=== PATIENT | male | born 1985 | race Asian ===

== ENCOUNTER 2016-12-06 10:45 | Emergency (ER) | payer OTHER ==
[~2016-12-06] VITALS: Ht 152.4 cm; Wt 45.4 kg
--- NOTE | 2016-12-06 11:14 | PHYS DOC ---
Adult General Chief Complaint Chief Complaint: FEVER HPI HPI Patient is a 31 year old male presents to the ED complaining of dysuria x 3 days. Describes the pain as burning. Rates the pain as 7/10. Associated symptoms include subjective fever and body aches. States similar symptoms in the past. Denies headache, penile discharge, hematuria, n/v, dizziness, weakness , abdominal pain, chest pain, shortness of breath or testicular swelling. Review of Systems Review of Systems Constitutional: Denies fever or chills [] Eyes: Denies change in visual acuity, redness, or eye pain [] HENT: Denies nasal congestion or sore throat [] Respiratory: Denies cough or shortness of breath [] Cardiovascular: No additional information not addressed in HPI [] GI: Denies abdominal pain, nausea, vomiting, bloody stools or diarrhea [] : Complains of dysuria. Denies hematuria. [] Musculoskeletal: Denies back pain or joint pain [] Integument: Denies rash or skin lesions [] Neurologic: Denies headache, focal weakness or sensory changes [] Endocrine: Denies polyuria or polydipsia [] Current Medications Current Medications Current Medications Medications (Trade) Dose Ordered Sig/Coral Start Time Stop Time Status Last Admin Dose Admin Acetaminophen (Tylenol) 650 mg 1X ONCE 12/06/16 13:45 12/06/16 13:46 DC 12/06/16 13:28 650 MG Azithromycin (Zithromax) 250 mg STK-MED ONCE 12/06/16 12:42 12/06/16 12:43 DC Ceftriaxone Sodium (Rocephin Im) 250 mg STK-MED ONCE 12/06/16 12:42 12/06/16 12:43 DC Ibuprofen (Motrin) 800 mg 1X ONCE 12/06/16 14:00 12/06/16 14:01 DC 12/06/16 14:11 800 MG Metronidazole (Flagyl) 2,000 mg 1X ONCE 12/06/16 12:45 12/06/16 12:46 DC 12/06/16 12:45 2,000 MG Sodium Chloride 1,000 ml @ 1,000 mls/hr 1X ONCE 12/06/16 13:30 12/06/16 14:29 DC 12/06/16 13:27 1,000 MLS/HR Allergies Allergies Allergies Coded Allergies Type Severity Reaction Last Updated Verified No Known Drug Allergies 12/06/16 No Physical Exam Physical Exam Constitutional: Well developed, well nourished, no acute distress, non-toxic appearance. [] HENT: Normocephalic, atraumatic, bilateral external ears normal, oropharynx moist, no oral exudates, nose normal. [] Eyes: PERRLA, EOMI, conjunctiva normal, no discharge. [] Neck: Normal range of motion, no tenderness, supple, no stridor. [] Cardiovascular:Heart rate regular rhythm, no murmur [] Lungs & Thorax: Bilateral breath sounds clear to auscultation [] Abdomen: Bowel sounds normal, soft, no tenderness, no masses, no pulsatile masses. [] REFUSED EXAM. Skin: Warm, dry, no erythema, no rash. [] Back: No tenderness, no CVA tenderness. [] Extremities: No tenderness, no cyanosis, no clubbing, ROM intact, no edema. [] Neurologic: Alert and oriented X 3, normal motor function, normal sensory function, no focal deficits noted. [] Psychologic: Affect normal, judgement normal, mood normal. [] Current Patient Data Vital Signs Vital Signs Date Time Temp Pulse Resp B/P (MAP) Pulse Ox O2 Delivery O2 Flow Rate FiO2 12/06/16 15:08 109 18 96/50 (65) 100 Room Air 12/06/16 13:10 101.0 101.0 Lab Values Laboratory Tests Test 12/06/16 11:13 12/06/16 13:15 12/06/16 13:18 Urine Collection Type Unknown Urine Color Joana Urine Clarity Clear Urine pH 6.0 Urine Specific Leslie 1.020 Urine Protein 30 mg/dL (NEG-TRACE) Urine Glucose (UA) Negative mg/dL (NEG) Urine Ketones (Stick) Negative mg/dL (NEG) Urine Blood Negative (NEG) Urine Nitrite Negative (NEG) Urine Bilirubin Negative (NEG) Urine Urobilinogen Dipstick 2.0 mg/dL (0.2 mg/dL) Urine Leukocyte Esterase Negative (NEG) Urine RBC 0 /HPF (0-2) Urine WBC 1-4 /HPF (0-4) Urine Transitional Epithelial Cells Mod /LPF Urine Bacteria 0 /HPF (0-FEW) Urine Mucus Marked /LPF Urine Chlamydia DNA (PCR) Negative (Negative) Neisseria gonorrhoeae DNA (PCR) Negative (Negative) White Blood Count 12.1 x10^3/uL (4.0-11.0) H Red Blood Count 5.52 x10^6/uL (4.30-5.70) Hemoglobin 15.7 g/dL (13.0-17.5) Hematocrit 46.0 % (39.0-53.0) Mean Corpuscular Volume 83 fL (79-100) Mean Corpuscular Hemoglobin 28 pg (25-35) Mean Corpuscular Hemoglobin Concent 34 g/dL (31-37) Red Cell Distribution Width 13.2 % (11.5-14.5) Platelet Count 157 x10^3/uL (140-400) Sodium Level 139 mmol/L (136-145) Potassium Level 3.8 mmol/L (3.5-5.1) Chloride Level 101 mmol/L (98-107) Carbon Dioxide Level 29 mmol/L (21-32) Anion Gap 9 (6-14) Blood Urea Nitrogen 11 mg/dL (8-26) Creatinine 1.1 mg/dL (0.7-1.3) Estimated GFR (Cockcroft-Gault) 78.6 BUN/Creatinine Ratio 10 (6-20) Glucose Level 103 mg/dL (70-99) H Calcium Level 8.6 mg/dL (8.5-10.1) Total Bilirubin 0.8 mg/dL (0.2-1.0) Aspartate Amino Transferase (AST) 39 U/L (15-37) H Alanine Aminotransferase (ALT) 104 U/L (16-63) H Alkaline Phosphatase 259 U/L (46-116) H Total Protein 8.6 g/dL (6.4-8.2) H Albumin 3.4 g/dL (3.4-5.0) Albumin/Globulin Ratio 0.7 (1.0-1.7) L Influenza Type A Antigen Negative (NEGATIVE) Influenza Type B Antigen Negative (NEGATIVE) Group A Streptococcus Rapid Negative (NEGATIVE) Laboratory Tests 12/06/16 13:15 Laboratory Tests 12/06/16 13:15 Microbiology 12/06/16 Throat Culture - Preliminary, Resulted 12/06/16 - Preliminary, Resulted EKG EKG [] Radiology/Procedures Radiology/Procedures PROCEDURE: CHEST PA & LATERAL CHEST PA LATERAL Clinical Indication: pneumonia, fever Comparison: Chest radiograph dated 05/22/2015 Findings: Normal lung volume. No focal consolidation. Normal pulmonary vasculature. No pleural effusion or pneumothorax. The cardiomediastinal silhouette and great vessels are normal. No acute osseous abnormality. IMPRESSION: No acute cardiopulmonary process. [] Course & Med Decision Making Course & Med Decision Making Pertinent Labs and Imaging studies reviewed. (See chart for details) []Fever improved. Patient well-appearing. Laughing and talking with family in room. Will treat empirically for dysuria symptoms with Rocephin, Azithromycin, and flagyl in ED. Will prescribe Doxycycline outpatient. Reviewed UA and labs with patient. GC urinalysis pending. Patient well appearing. Vitals stable, NAD. Discussed symptomatic treatment. Discussed safe sex practice and follow-up STD testing. Discussed reasons to return to the ED. Patient understands and agrees with plan. Family at bedside. Dragon Disclaimer Dragon Disclaimer This electronic medical record was generated, in whole or in part, using a voice recognition dictation system. Departure Departure Impression: Primary Impression: Dysuria Additional Impression: Viral illness Disposition: 01 HOME, SELF-CARE Condition: STABLE Referrals: AIDA HEART MD (PCP) Patient Instructions: Dysuria Scripts Ibuprofen (IBUPROFEN) 800 Mg Tablet 800 MG PO PRN Q6HRS Y for INFLAMMATION, #20 TAB Prov: AMANDA KAMINSKI 12/06/16 Doxycycline Hyclate (DOXYCYCLINE HYCLATE) 100 Mg Capsule 1 CAP PO BID, #20 CAP Prov: AMANDA KAMINSKI 12/06/16 Problem Qualifiers AMANDA KAMINSKI Dec 06, 2016 11:14
[2016-12-06 12:19] LABS: BILIRUBIN,URINE NEGATIVE (NEG); GLUCOSE,URINE NEGATIVE (NEG); NITRITE,URINE NEGATIVE (NEG); PROTEIN,URINE 30 mg/dL (NEG-TRACE)
[2016-12-06 12:35] LABS: RBC,URINE 0 /HPF (0-2)
[2016-12-06 12:36] LABS: BACTERIA,URINE 0 /HPF (0-FEW)
[2016-12-06] MEDS ORDERED: cefTRIAXone IM 250 MG VIAL IM ONE ×2 (12:42→12:45)
[2016-12-06] MEDS ORDERED: AZITHROMYCIN 250 MG TABLET. ONE (12:42)
[2016-12-06] MEDS ORDERED: metroNIDAZOLE 500 MG TABLET PO ONE (12:45)
[2016-12-06] MEDS ORDERED: AZITHROMYCIN 250 MG TABLET. PO ONE (12:45)
[2016-12-06] MEDS ORDERED: DOXY100C2 PO (12:55)
[2016-12-06 13:26] LABS: HEMOGLOBIN 15.7 g/dL (13.0-17.5); RED BLOOD COUNT 5.52 x10^6/uL (4.30-5.70); RED CELL DISTRIBUTION WIDTH 13.2 % (11.5-14.5); WHITE BLOOD COUNT 12.1 x10^3/uL (4.0-11.0)
[2016-12-06] MEDS ORDERED: IV NORMAL SALINE 1000ML BAG 1,000 ML IV ONE (13:30)
[2016-12-06 13:40] LABS: CALCIUM 8.6 mg/dL (8.5-10.1); CREATININE 1.1 mg/dL (0.7-1.3); GFR 78.6; POTASSIUM 3.8 mmol/L (3.5-5.1)
[2016-12-06] MEDS ORDERED: ACETAMINOPHEN 325 MG TABLET. PO ONE (13:45)
[2016-12-06 13:47] LABS: OBC FLU VALID
[2016-12-06 13:48] LABS: ALBUMIN 3.4 g/dL (3.4-5.0); ALBUMIN/GLOBULIN RATIO 0.7 (1.0-1.7); TOTAL BILIRUBIN 0.8 mg/dL (0.2-1.0); TOTAL PROTEIN 8.6 g/dL (6.4-8.2)
[2016-12-06] MEDS ORDERED: IBUPROFEN 800 MG TABLET. PO ONE (14:00)
[2016-12-06] MEDS ORDERED: IBUP-1060 PO (14:49)
[2016-12-06 15:08] VITALS: BP 96/50
--- NOTE | 2016-12-06 15:24 | RAD ---
CHEST PA LATERAL Clinical Indication: pneumonia, fever Comparison: Chest radiograph dated 05/22/2015 Findings: Normal lung volume. No focal consolidation. Normal pulmonary vasculature. No pleural effusion or pneumothorax. The cardiomediastinal silhouette and great vessels are normal. No acute osseous abnormality. IMPRESSION: No acute cardiopulmonary process.
[2016-12-07 08:00] LABS: NEGATIVE OBC STREP NEG; POSITIVE OBC STREP POS
== END 2016-12-06 15:09 | disposition home or self-care (01) ==
LOC: ER 10:45
DX: B34.9 Viral infection, unspecified (principal); R30.0 Dysuria
CPT/HCPCS: 36415; 71020; 80053; 81001; 85027; 87070; 87491; 87591; 87804; 87880; 96360; 96372; 99285; J0696; J7030; Q0144

== ENCOUNTER 2017-01-14 14:28 | Emergency (ER) | payer OTHER ==
[~2017-01-14] VITALS: Ht 152.4 cm; Wt 49.9 kg
[~2017-01-14 14:28] MED LIST: DOXY100C2 PO; IBUP-1060 PO
[2017-01-14 14:44] VITALS: BP 124/81
--- NOTE | 2017-01-14 14:53 | PHYS DOC ---
Past Medical History Past Medical History: No Pertinent History Past Surgical History: No Surgical History Alcohol Use: None Drug Use: None Adult General Chief Complaint Chief Complaint: EYE PROBLEMS HPI HPI Patient is a 31 year old presents to the ED complaining of left eye redness 3 weeks. 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 States it improved but he worked again and it came back. States the redness has not improved. States his vision is fine but he feels like there is something in his eye. States he does not wear glasses or contacts. Denies green discharge, vision changes, nausea/vomiting, headache, chest pain or shortness of breath. Review of Systems Review of Systems Constitutional: Denies fever or chills [] Eyes: Complains of eye redness. Denies change in visual acuity or eye pain [] HENT: Denies nasal congestion or sore throat [] Respiratory: Denies cough or shortness of breath [] Cardiovascular: No additional information not addressed in HPI [] GI: Denies abdominal pain, nausea, vomiting, bloody stools or diarrhea [] : Denies dysuria or hematuria [] Musculoskeletal: Denies back pain or joint pain [] Integument: Denies rash or skin lesions [] Neurologic: Denies headache, focal weakness or sensory changes [] Endocrine: Denies polyuria or polydipsia [] All other systems were reviewed and found to be within normal limits, except as documented in this note. Current Medications Current Medications Current Medications Medications (Trade) Dose Ordered Sig/Coral Start Time Stop Time Status Last Admin Dose Admin Fluorescein Sodium (Ful-Cris) 1 strip 1X ONCE 01/14/17 15:00 01/14/17 15:01 DC 01/14/17 14:50 1 STRIP Tetracaine HCl (Tetracaine) 1 drop 1X ONCE 01/14/17 15:00 01/14/17 15:01 DC 01/14/17 14:51 1 DROP Allergies Allergies Allergies Coded Allergies Type Severity Reaction Last Updated Verified No Known Drug Allergies 12/06/16 No Physical Exam Physical Exam Constitutional: Well developed, well nourished, no acute distress, non-toxic appearance. [] HENT: Normocephalic, atraumatic, bilateral external ears normal, oropharynx moist, no oral exudates, nose normal. [] Eyes: PERRLA, EOMI, conjunctival injection, no discharge. [] Cardiovascular:Heart rate regular rhythm, no murmur [] Lungs & Thorax: Bilateral breath sounds clear to auscultation [] Skin: Warm, dry, no erythema, no rash. [] Neurologic: Alert and oriented X 3, normal motor function, normal sensory function, no focal deficits noted. [] Psychologic: Affect normal, judgement normal, mood normal. [] Current Patient Data Vital Signs Vital Signs Date Time Temp Pulse Resp B/P (MAP) Pulse Ox O2 Delivery O2 Flow Rate FiO2 01/14/17 14:44 98.0 83 20 100 Room Air 98.0 EKG EKG [] Radiology/Procedures Radiology/Procedures [] Course & Med Decision Making Course & Med Decision Making Pertinent Labs and Imaging studies reviewed. (See chart for details) Visual Acuity 20/40 R/L/B. Foreign body sensation improved with tetracaine. No foreign body seen on exam. Small corneal abrasion seen. Eyelids swept with que tip. IOP within normal limits. Tetanus UTD. Will discharge with erythromycin ointment. Discussed follow-up with degreasing solution reclaimer in 1-2 days. Provided contact information/education. Discussed reasons to return to the ED. Patient understands and agrees with plan. Family at bedside. Dragon Disclaimer Dragon Disclaimer This electronic medical record was generated, in whole or in part, using a voice recognition dictation system. Departure Departure Impression: Primary Impression: Corneal abrasion Additional Impression: Conjunctivitis Disposition: 01 HOME, SELF-CARE Condition: IMPROVED Referrals: AIDA HEART MD (PCP) MONSE JARA MD Patient Instructions: Conjunctivitis (Viral and Bacterial), Eye - Corneal Abrasion Scripts Erythromycin Base (Erythromycin) 1 Gm Oint...g. 1 GM OP 6XDAY for 10 Days, #1 MISC Prov: AMANDA KAMINSKI 01/14/17 Eye Procedure Eye Procedure : Alcaine Drops Administered: Yes Eye FB Removal: removal w/ cotton swab (no foreign body seen) Eye Irrigated w/ Saline (ccs): 500 Progress No FB seen. Corneal abrasion seen. Patient tolerated procedure well. Tetracaine drops improved patients pain. Problem Qualifiers AMANDA KAMINSKI Jan 14, 2017 14:53
[2017-01-14] MEDS ORDERED: FLUORESCEIN OPHTH TEST STRIP. OS ONE (15:00)
[2017-01-14] MEDS ORDERED: TETRACAINE 0.5% OPHTH SOLUTION 4ML BOTTLE. OS ONE (15:00)
[2017-01-14] MEDS ORDERED: ERYT1OIN6 OP (15:09)
== END 2017-01-14 15:11 | disposition home or self-care (01) ==
LOC: ER 14:28
DX: S05.00XA Injury of conjunctiva and corneal abrasion without foreign body, unspecified eye, initial encounter (principal); H10.9 Unspecified conjunctivitis; X58.XXXA Exposure to other specified factors, initial encounter; Y93.89 Activity, other specified; Y99.8 Other external cause status; Y92.89 Other specified places as the place of occurrence of the external cause
CPT/HCPCS: 99283